=== PATIENT | male | born 1975 | race Caucasian/White ===

== ENCOUNTER 2024-05-25 16:04 | Inpatient (IN) | payer MEDICAID, OTHER, SELFPAY ==
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
[2024-05-25 16:09] VITALS: BP 140/102; PULSE 110; RESP 20; TEMP 37.6; O2SAT 99; BMI 21.7
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
[2024-05-25 16:21] VITALS: BP 140/102; PULSE 110; RESP 20; TEMP 37.6; O2SAT 99
[2024-05-25 16:53] LABS: Appearance Urine Clear; Color Urine Dark Yellow; Glucose Urine UA Negative (Negative); Leukocyte Esterase Urine Negative (Negative); Nitrite Urine Negative (Negative); PH 5.5 (5.0-9.0); Specific Gravity - Urine >= 1.030 (1.005-1.025); UMIC TRIGGER UACC YES; Urine Blood Negative (Negative); Urine Ketones 15 mg/dL (Negative); Urine Protein 100 (2+) mg/dL (Neg-Trace)
[2024-05-25 17:04] LABS: MANUAL DIFF FLAG NO
[2024-05-25 17:06] LABS: Amphetamine Screen Urine Not Detected (Not Detect); Barbiturates, Urine Not Detected (Not Detect); Benzodiazepines Screen Urine Not Detected (Not Detect); Buprenorphine Scr Not Detected (Not Detect); Cannabinoid Screen Urine Not Detected (Not Detect); Cocaine Screen Urine Not Detected (Not Detect); Fentanyl, urine POSITIVE (Not Detect); Methadone Screen, Urine Not Detected (Not Detect); Opiate Screen Urine POSITIVE (Not Detect); Oxycodone Screen Urine Not Detected (Not Detect); Phencyclidine Screen Urine Not Detected (Not Detect)
[2024-05-25 17:12] LABS: Basophils Percent Auto 0.1 % (0-2); Eosinophils Percent Auto 0.1 % (0-4); Hematocrit 46.5 % (42.0-52.0); Hemoglobin 16.5 g/dl (14.0-18.0); Imm Gran Abs Auto 0.07 X10*3/uL (0.00-0.03); Imm Gran Pct Auto 0.5 % (0.0-0.4); Lymphocytes Absolute Auto 1.2 X10*3/uL (1.2-4.9); Lymphocytes Percent Auto 9.2 % (20-40); Mean Corpuscular HGB Conc 35.5 g/dl (31.0-36.0); Mean Corpuscular Hemoglobin 31.9 pg (27.0-33.0); Mean Corpuscular Volume 89.8 fL (80.0-98.0); Mean Platelet Volume 10.7 fL (9.4-12.4); Monocytes Absolute Auto 0.9 X10*3/uL (0.1-1.2); Monocytes Percent Auto 6.3 % (2-11); Neutrophils Absolute Auto 11.3 x10*3/uL (2.0-8.3); Neutrophils Percent Auto 83.8 % (45-73); Platelet Count 141 X10*3/uL (160-400); Red Blood Count 5.18 X10*6/uL (4.60-5.80); White Blood Count 13.5 X10*3/uL (4.8-10.8)
[2024-05-25 17:13] LABS: Bacteria Urine None Seen (None Seen); RBC Urine 0-2 /HPF (0-2); Squamous Epithelial Cell Urine 0-2 /HPF (0-2); WBC Urine 0-5 /HPF (0-5)
[2024-05-25] MEDS: Ondansetron ODT 4 MG TAB.RAPDIS TRANSLINGU (17:15)
[2024-05-25] MEDS: LORazepam 1 MG TABLET 2 MG PO ×2 (17:15→22:19)
[2024-05-25 17:24] LABS: Alanine Aminotransferase 134 U/L (0-40); Albumin Level 4.1 g/dL (3.5-5.0); Alkaline Phosphatase 66 U/L (39-117); Anion Gap 16 (12-20); Aspartate Amino Transferase 94 U/L (5-37); Bilirubin Total 0.9 mg/dL (0.0-1.0); Blood Urea Nitrogen 19 mg/dL (9-16); Calcium 10.1 mg/dL (8.4-10.2); Carbon Dioxide 25 mmol/L (22-29); Chloride 105 mmol/L (96-108); Creatinine Clr Calc Pharmacy 93.1; Estimated Glomerular Filt Rate > 60; Ethanol 61 mg/dL; Glucose Random 108 mg/dL (60-115); Potassium 4.4 mmol/L (3.3-5.1); Sodium 142 mmol/L (135-145); Total Protein 8.3 g/dL (6.5-8.0)
[2024-05-25 17:25] LABS: Acetaminophen LAB < 3 mcg/mL (<30); Salicylate < 5.0 mg/dL (15-30)
[2024-05-25] MEDS: Loperamide HCl 2 MG CAPSULE PO (17:25)
--- NOTE | 2024-05-25 19:31 | PC.NURSE ---
patient appears to remain at rest presently respirations are even and unlabored patient appears in no distress.
[2024-05-25 22:11] VITALS: BP 181/97; PULSE 62; RESP 18; TEMP 37.5; O2SAT 97
[2024-05-25 22:19] VITALS: BP 181/97
[2024-05-25] MEDS: cloNIDine HCL 0.1 MG TABLET PO (22:19)
--- NOTE | 2024-05-25 22:22 | PC.NURSE ---
patient had reported to manager technical support of feeling moderate discomfort from opiate wd sx. assessed for cows score 7 just gave clonidine and some ativan, awaiting flexeril to be brought from main ED.
[2024-05-25] MEDS: Cyclobenzaprine HCl 10 MG TABLET PO (22:34)
--- NOTE | 2024-05-26 | ECG_ITS ---
Test Reason : CHECK QT INTERVAL Blood Pressure : / mmHG Vent. Rate : 053 BPM Atrial Rate : 053 BPM P-R Int : 124 ms QRS Dur : 100 ms QT Int : 494 ms P-R-T Axes : 085 075 086 degrees QTc Int : 463 ms Sinus bradycardia with sinus arrhythmia Otherwise normal ECG No previous ECGs available Referred By: Kristi Montalvo Electronically Signed By:VENICE SIMON MD
[2024-05-26 04:27] VITALS: BP 170/105; PULSE 67; RESP 16; TEMP 36.6; O2SAT 97
[2024-05-26 04:33] LABS: Glucose, Whole Blood 105 mg/dL (60-115)
--- NOTE | 2024-05-26 04:48 | PC.NURSE ---
t/w requested provider review patients vs and lab results in regard to new sx of dizziness, no addl medications to be given at this time
--- NOTE | 2024-05-26 08:19 | MHC.RECOVRN ---
Met with pt in [facility] after pt expressed desire to initiate methadone and reporting withdrawal symptoms. Pt laying in bed, awake, alert, engages in conversation. Pt reports he had been using 2 bundles heroin[place]fent[place], [place], prior to going to correction on Tuesday 05/22. Pt reports he was released on 05/24. Pt reports he did not received MOUD while in correction. Pt reports yesterday (05/25) using 1 bag heroin/fentanyl, [place]. Pt then presented to [facility] reporting SI. Pt currently reporting withdrawal symptoms including restlessness, upset stomach/no appetite, inability to sleep. Pt does not appear diaphoretic, no rhinorrhea noted. Pt would like to initiate methadone and continue when back in the community. Pt has not been to an OTP in the past, has taken methadone illicitly. Pt denies other questions or concerns for t/w. Discussed with pts RN and provider. Plan to administer 30 mg methadone.
[2024-05-26] MEDS: methADONE HCl 20 MG/2 ML ORAL.CONC 30 MG PO (08:48)
[2024-05-26 13:23] VITALS: BP 156/99; PULSE 63; RESP 14; TEMP 36.6; O2SAT 99
--- NOTE | 2024-05-26 15:05 | MHC.RECOVRN ---
Met with pt in [facility] to follow up after receiving 30 mg methadone this morning. Pt awake, alert, engages in conversation, sister Zenaida present with pts permission. Pt reports withdrawal symptoms including restlessness, anxiety, and diaphoresis. Pt requesting additional methadone. Discussed with Saloni Casillas APRN.
[2024-05-26 15:07] VITALS: BP 135/94; PULSE 94; RESP 16; TEMP 36.8; O2SAT 99
[2024-05-26 15:17] VITALS: BMI 20.5
--- NOTE | 2024-05-26 16:26 | PM.EVENT ---
Event Note Date of Service: 05/26/24 Event Note: Addiction consult placed for patient admitted to unit Seen earlier in the day X2 by early childhood teacher assistant --substance use history obtained and methadone initiated by ED provider Reassessed by early childhood teacher assistant several hours after methadone 30mg dose administration, and patient reporting ongoing mild withdrawal sx Plan: -methadone 10mg x1 (total of 40mg today) -methadone 45mg in AM ordered -HIV and hepatitis c screening ordered with AM labs -to be seen by provider in AM Time Spent With Patient Time: Total time managing care of this patient today ____ minutes.
[2024-05-26] MEDS: methADONE HCl 20 MG/2 ML ORAL.CONC 10 MG PO (17:06)
[2024-05-26] MEDS: Flu Vacc TS2024-25(6mos up)/PF 0.5 ML SYRINGE IM (17:07)
[2024-05-26 17:13] VITALS: BP 139/101
[2024-05-26] MEDS: hydrOXYzine HCL 25 MG TABLET PO (17:13)
[2024-05-26] MEDS: cloNIDine HCL 0.1 MG TABLET PO (17:13)
[2024-05-26] MEDS: methADONE HCl 20 MG/2 ML ORAL.CONC 5 MG PO (17:18)
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
[2024-05-26] MEDS: Nicotine Polacrilex 2 MG GUM 4 MG BUCCAL (18:51)
[2024-05-26 19:40] VITALS: BP 144/87; PULSE 108; TEMP 36.9; O2SAT 99
[2024-05-26] MEDS: traZODone HCL 50 MG TABLET PO (23:44)
[2024-05-27] MEDS: methADONE HCl 20 MG/2 ML ORAL.CONC 45 MG PO (07:44)
[2024-05-27 08:16] VITALS: BP 126/82; PULSE 95; RESP 16; TEMP 36.3; O2SAT 99
[2024-05-27] MEDS: Multivitamin TABLET 1 TAB PO (08:31)
[2024-05-27] MEDS: Folic Acid 1 MG TABLET PO (08:31)
[2024-05-27] MEDS: Thiamine HCL 100 MG TABLET PO (08:31)
[2024-05-27 08:45] LABS: Estimated Average Glucose 88 mg/dL; Hemoglobin A1C 126.7408 umol/L; Hemoglobin A1c % 4.7 % (<6.0); Total Hemoglobin (HGBA1C) 4466.8257 umol/L
[2024-05-27 09:42] LABS: Cholesterol 180 mg/dL (<200); HDL Cholesterol 38 mg/dL (>40); LDL Cholesterol Calculated 123 mg/dL (<100); Magnesium 2.1 mg/dL (1.6-2.6); Triglycerides 96 mg/dL (<150)
[2024-05-27 09:57] LABS: Free T4 (Free Thyroxine) 0.86 ng/dL (0.71-1.85); Thyroid Stimulating Hormone 1.65 uIU/mL (0.32-4.0)
[2024-05-27 10:11] LABS: Folate 8.9 ng/mL (> or = 4.0); Vitamin B12 515 pg/mL (200-900)
[2024-05-27 10:13] LABS: HIV AB/AG Nonreactive (Nonreactive); HIV Num 1 0.06 S/CO (0.00-0.99)
[2024-05-27 10:17] LABS: ~HepC Num1 16.54 S/CO (0.00-0.79); ~Hepatitis C Antibody Reactive (Nonreactive)
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
--- NOTE | 2024-05-27 13:59 | HO.ADDICT_ITS ---
History of Present Illness Date of Service: 05/27/2024 Chief Complaint: SI; polysubstance use disorder Reason for Consult: OUD-methadone titration Sources of Information: patient interviewed and chart reviewed HPI Narrative: Patient is a 49 year old male with OUD currently admitted to unit with suicidal ideation Substance use history reviewed -2 bundles IN QD--several years -denies history overdose -denies history of treatment (ATS, MOUD) -denies any other substance use -reporting alcohol use several days per week --does not identify this as an issue Reporting chills denies n/v/loose stools occasional constipation methadone 45mg this morning sx much improved since initiation and hoping to continue dose titration Review of Systems Constitutional: Reports as per HPI Diagnostics Vital Signs (24Hr): Vital Signs - 24 hr 05/26/24 15:07 05/26/24 17:13 05/26/24 19:40 Temperature 98.3 F 98.4 F Pulse Rate 94 108 H Respiratory Rate 16 Blood Pressure 135/94 H 139/101 H 144/87 H Pulse Oximetry 99 99 Oxygen Delivery Method Room Air Room Air 05/27/24 08:16 Temperature 97.3 F Pulse Rate 95 Respiratory Rate 16 Blood Pressure 126/82 Pulse Oximetry 99 Oxygen Delivery Method Room Air BMI result Body Mass Index 20.5 Labs 05/25/24 17:00 05/25/24 17:00 Labs: Laboratory Results - last 48 hr 05/25/24 05/25/24 05/26/24 16:45 17:00 04:30 WBC 13.5 H RBC 5.18 Hgb 16.5 Hct 46.5 MCV 89.8 MCH 31.9 MCHC 35.5 RDW 12.0 Plt Count 141 L MPV 10.7 Immature Gran % (Auto) 0.5 H Neut % (Auto) 83.8 H Lymph % (Auto) 9.2 L [place] % (Auto) 6.3 Eos % (Auto) 0.1 Baso % (Auto) 0.1 Lymph # (Auto) 1.2 [place] # (Auto) 0.9 Eos # (Auto) 0.0 Baso # (Auto) 0.0 Abs Immat Gran (auto) 0.07 H Absolute Neuts (auto) 11.3 H Absolute Nucleated RBC 0.000 Nucleated RBC % (auto) 0.0 Sodium 142 Potassium 4.4 Chloride 105 Carbon Dioxide 25 Anion Gap 16 BUN 19 H Creatinine 0.88 Estim Creat Clear Calc 93.1 Estimated GFR > 60 POC Glucose 105 Random Glucose 108 Estimat Average Glucose Hemoglobin A1c % Calcium 10.1 Magnesium Total Bilirubin 0.9 AST 94 H ALT 134 H Alkaline Phosphatase 66 Total Protein 8.3 H Albumin 4.1 Triglycerides Cholesterol LDL Cholesterol, Calc HDL Cholesterol Vitamin B12 Folate TSH Free T4 Urine Color Dark Yellow Urine Appearance Clear Urine pH 5.5 Ur Specific [place] >= 1.030 H Urine Protein 100 (2+) H Urine Glucose (UA) Negative Urine Ketones 15 Urine Blood Negative Urine Nitrite Negative Ur Leukocyte Esterase Negative Urine RBC 0-2 Urine WBC 0-5 Ur Squamous Epith Cells 0-2 Urine Bacteria None Seen Hyaline Casts 3-5 Salicylates < 5.0 L Urine Opiates Screen POSITIVE H Ur Buprenorphine Scrn Not Detected Ur Oxycodone Screen Not Detected Urine Methadone Screen Not Detected Urine Fentanyl Screen POSITIVE H Acetaminophen < 3 Ur Barbiturates Screen Not Detected Ur Phencyclidine Scrn Not Detected Ur Amphetamines Screen Not Detected U Benzodiazepines Scrn Not Detected Urine Cocaine Screen Not Detected U Marijuana (THC) Screen Not Detected Ethyl Alcohol 61 Hepatitis C Ab (EIA) HIV 1&2 Ab/P24 Ag 4thGn 05/27/24 08:10 WBC RBC Hgb Hct MCV MCH MCHC RDW Plt Count MPV Immature Gran % (Auto) Neut % (Auto) Lymph % (Auto) [place] % (Auto) Eos % (Auto) Baso % (Auto) Lymph # (Auto) [place] # (Auto) Eos # (Auto) Baso # (Auto) Abs Immat Gran (auto) Absolute Neuts (auto) Absolute Nucleated RBC Nucleated RBC % (auto) Sodium Potassium Chloride Carbon Dioxide Anion Gap BUN Creatinine Estim Creat Clear Calc Estimated GFR POC Glucose Random Glucose Estimat Average Glucose 88 Hemoglobin A1c % 4.7 Calcium Magnesium 2.1 Total Bilirubin AST ALT Alkaline Phosphatase Total Protein Albumin Triglycerides 96 Cholesterol 180 LDL Cholesterol, Calc 123 H HDL Cholesterol 38 L Vitamin B12 515 Folate 8.9 TSH 1.65 Free T4 0.86 Urine Color Urine Appearance Urine pH Ur Specific [place] Urine Protein Urine Glucose (UA) Urine Ketones Urine Blood Urine Nitrite Ur Leukocyte Esterase Urine RBC Urine WBC Ur Squamous Epith Cells Urine Bacteria Hyaline Casts Salicylates Urine Opiates Screen Ur Buprenorphine Scrn Ur Oxycodone Screen Urine Methadone Screen Urine Fentanyl Screen Acetaminophen Ur Barbiturates Screen Ur Phencyclidine Scrn Ur Amphetamines Screen U Benzodiazepines Scrn Urine Cocaine Screen U Marijuana (THC) Screen Ethyl Alcohol Hepatitis C Ab (EIA) Reactive H HIV 1&2 Ab/P24 Ag 4thGn Nonreactive Mental Status Exam Mental Status Exam Patient Appearance: Appropriate Level of Consciousness: Awake, Appropriate and Alert Patient Behavior: Appropriate and Talkative Mood Description: Calm Affect Description: Calm Speech Pattern: Clear Medications Medications Current Medications Acetaminophen (Acetaminophen 325 Mg Tablet) 650 mg PO Q6H PRN PRN Reason: Headache/Pain Mild Scale (1-3) Al Hydroxide/Mg Hydroxide (Magnesium Hydrox/Alum Hydrox 30 Ml Oral.Susp) 30 ml PO Q6H PRN PRN Reason: Heartburn/Nausea Clonidine HCl (Clonidine Hcl 0.1 Mg Tablet) 0.1 mg PO Q4H PRN; Protocol PRN Reason: withdrawal sx Folic Acid (Folic Acid 1 Mg Tablet) 1 mg PO DAILY [facility] Last Admin: 05/27/24 08:31 Dose: 1 mg Hydroxyzine HCl (Hydroxyzine Hcl 25 Mg Tablet) 25 mg PO Q6H PRN PRN Reason: Anxiety Last Admin: 05/26/24 17:13 Dose: 25 mg Magnesium Hydroxide (Milk Of Magnesia 30 Ml Oral.Susp) 30 ml PO DAILY PRN PRN Reason: Constipation Methadone HCl (Methadone Hcl 20 Mg/2 Ml Oral.Conc) 45 mg PO DAILY@0800 [facility] Last Admin: 05/27/24 07:44 Dose: 45 mg Multivitamins/Vitamin C (Multivitamin Tablet) 1 tab PO DAILY [facility] Last Admin: 05/27/24 08:31 Dose: 1 tab Nicotine (Nicotine 21 Mg Patch.Td24) 21 mg TRANSDERMA DAILY PRN PRN Reason: nicotine cravings Nicotine Polacrilex (Nicotine Polacrilex 2 Mg Gum) 4 mg BUCCAL Q2H PRN PRN Reason: Nicotine Cravings Last Admin: 05/26/24 18:51 Dose: 4 mg Olanzapine (Olanzapine 5 Mg Tablet) 5 mg PO Q4H PRN PRN Reason: agitation Thiamine HCl (Thiamine Hcl 100 Mg Tablet) 100 mg PO DAILY [facility] Last Admin: 05/27/24 08:31 Dose: 100 mg Trazodone HCl (Trazodone Hcl 50 Mg Tablet) 50 mg PO BEDTIME MRX1 PRN PRN Reason: Insomnia Last Admin: 05/26/24 23:44 Dose: 50 mg Allergies Allergies Allergy/AdvReac Type Severity Reaction Status Date / Time No Known Allergies Allergy Verified 05/25/24 16:12 Assessment & Plan Assessment & Plan (1) Opioid use disorder, severe, dependence: Status: Acute Code(s): F11.20 - Opioid dependence, uncomplicated Assessment and Plan: * methadone dose increase to 55mg in AM * HIV and Hepatitis screens ordered earlier this morning * mill work to check in Total time managing care of this patient today __30__ minutes. PMFSH Social History Social History Household Members: Other Household Members Other:: roommate Housing: House Do you presently have visiting nurse or other home services: No Patient Tobacco Use Status: Current everyday Tobacco user Tobacco use type: Cigarette Cigarette Packs Per Day: 0.5 Cigarettes Per Day: 10.0 Smoked in Last 30 Days: Yes e-Cigarette/Vaping Use: Never Used Patient Interested in Nicotine Replacement: Yes Patient Given Instructions on How to Stop Smoking: No Second Hand Smoke Exposure: No Use of substances other than those prescribed or required for medical reasons: Yes Substance Use Type: Opiates Substance Use Type Other:: Fentanyl Substance Use Frequency: Daily Last Used Substance: Just Prior to Admission Last Used Substance Other:: Uses Fentanyl 1 bundle per daily- sniffs Currently Displaying Signs/Symptoms of Drug Intoxication Withdrawal: No Any prior treatment program specific to substance use: No (Previously taking Suboxone sold on the streets) Have you been hit, kicked, punched, or otherwise hurt by someone within the past year? If so, by whom?: No Do you feel safe in your current relationship?: No Is there a partner from a previous relationship who is making you feel unsafe now?: No Are you made to feel afraid or neglected: No Spiritual Healthcare Practices: None Latter-Day Healthcare Practices: None Cultural Healthcare Practices: None Advance Directives: No Advance Directives Information Provided: No Do you have thoughts of harming others: None Do you have a plan to hurt others: No Plan Recently lost weight without trying: No How much weight loss: Unsure Eating poorly because of decreased appetite: No Nutrition screen score: 2 Nutrition Risks: No Nutritional Risk Poor oral hygiene: No service: No Sexual orientation: Straight/Heterosexual
[2024-05-27] MEDS: hydrOXYzine HCL 25 MG TABLET PO ×2 (15:39→21:43)
[2024-05-27 19:42] VITALS: BP 130/83; PULSE 91; RESP 14; TEMP 36.6; O2SAT 100
[2024-05-27] MEDS: methADONE HCl 20 MG/2 ML ORAL.CONC 5 MG PO (20:09)
[2024-05-27] MEDS: traZODone HCL 50 MG TABLET PO ×2 (20:09→21:43)
[2024-05-27] MEDS: OLANZapine 5 MG TABLET PO (21:45)
[2024-05-28] MEDS: methADONE HCl 20 MG/2 ML ORAL.CONC 55 MG PO (07:58)
[2024-05-28 09:14] VITALS: BP 104/69; PULSE 91; RESP 16; TEMP 36.4; O2SAT 99
[2024-05-28] MEDS: Multivitamin TABLET 1 TAB PO (09:22)
[2024-05-28] MEDS: Thiamine HCL 100 MG TABLET PO (09:22)
[2024-05-28] MEDS: Folic Acid 1 MG TABLET PO (09:22)
[2024-05-28] MEDS: Magnesium Hydrox/Alum Hydrox 30 ML ORAL.SUSP PO (10:18)
[2024-05-28] MEDS: Nicotine 21 MG PATCH.TD24 TRANSDERMA (13:44)
--- NOTE | 2024-05-28 14:37 | MHC.RECOVRN ---
Attempted to meet with pt to follow up regarding methadone. Pt off unit for xray.
--- NOTE | 2024-05-28 15:39 | MHC.RECOVRN ---
Met with pt to follow up and provide support. Pt in visit with his sister, however, reports inability to sleep and creepy crawlies under my skin. Denies other withdrawal symptoms. Denies other questions or concerns for t/w. Saloni Casillas APRN, aware.
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
[2024-05-28 17:00] VITALS: BP 110/77
[2024-05-28] MEDS: cloNIDine HCL 0.1 MG TABLET PO (17:00)
[2024-05-28 17:23] LABS: HCV Log PCR 5.91 Log IU/mL (NOT DETECTED); HepC Viral Load 808000 IU/mL (NOT DETECTED)
[2024-05-28 19:15] VITALS: BMI 21.7
[2024-05-28 20:00] VITALS: BP 106/55; PULSE 86; TEMP 36.6; O2SAT 99
[2024-05-28] MEDS: Mirtazapine 15 MG TABLET PO (20:54)
[2024-05-28] MEDS: Docusate Sodium 100 MG CAPSULE PO (20:54)
[2024-05-28] MEDS: traZODone HCL 50 MG TABLET PO (22:09)
[2024-05-29] MEDS: traZODone HCL 50 MG TABLET PO ×2 (00:22→22:55)
[2024-05-29] MEDS: methADONE HCl 20 MG/2 ML ORAL.CONC 55 MG PO (07:54)
[2024-05-29 08:00] VITALS: BP 143/87; PULSE 77; TEMP 36.9; O2SAT 99
[2024-05-29] MEDS: Docusate Sodium 100 MG CAPSULE PO ×2 (08:39→20:24)
[2024-05-29] MEDS: Folic Acid 1 MG TABLET PO (08:40)
[2024-05-29] MEDS: Thiamine HCL 100 MG TABLET PO (08:40)
[2024-05-29] MEDS: Multivitamin TABLET 1 TAB PO (08:40)
[2024-05-29] MEDS: Milk of Magnesia 30 ML ORAL.SUSP PO (08:52)
[2024-05-29] MEDS: Nicotine 21 MG PATCH.TD24 TRANSDERMA (08:52)
[2024-05-29] MEDS: Magnesium Hydrox/Alum Hydrox 30 ML ORAL.SUSP PO (08:58)
[2024-05-29] MEDS: Ibuprofen 800 MG TABLET PO ×2 (14:22→22:54)
[2024-05-29] MEDS: Lidocaine 4 % Patch ADH..PATCH 1 PATCH TRANSDERMA (14:23)
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
[2024-05-29 20:00] VITALS: BP 112/63; PULSE 80; TEMP 36.4; O2SAT 98
[2024-05-29] MEDS: QUEtiapine Fumarate 25 MG TABLET 75 MG PO (20:24)
[2024-05-30] MEDS: methADONE HCl 20 MG/2 ML ORAL.CONC 55 MG PO (07:46)
[2024-05-30 08:33] VITALS: BP 136/72; PULSE 52; RESP 16; TEMP 36.4; O2SAT 96
[2024-05-30] MEDS: Thiamine HCL 100 MG TABLET PO (09:08)
[2024-05-30] MEDS: Folic Acid 1 MG TABLET PO (09:08)
[2024-05-30] MEDS: Multivitamin TABLET 1 TAB PO (09:08)
[2024-05-30] MEDS: Escitalopram Oxalate 5 MG TABLET PO (09:08)
[2024-05-30] MEDS: Docusate Sodium 100 MG CAPSULE PO ×2 (09:08→20:55)
[2024-05-30] MEDS: Nicotine 21 MG PATCH.TD24 TRANSDERMA (09:36)
[2024-05-30] MEDS: Ibuprofen 800 MG TABLET PO ×2 (09:37→19:16)
[2024-05-30] MEDS: Milk of Magnesia 30 ML ORAL.SUSP PO (09:37)
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
[2024-05-30] MEDS: Lidocaine 4 % Patch ADH..PATCH 1 PATCH TRANSDERMA (11:33)
[2024-05-30] MEDS: Omeprazole 20 MG CAPSULE.DR PO (11:33)
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
[2024-05-30 20:00] VITALS: BP 135/85; PULSE 80; RESP 16; TEMP 36.4; O2SAT 97
[2024-05-30] MEDS: Magnesium Hydrox/Alum Hydrox 30 ML ORAL.SUSP PO (20:55)
[2024-05-30] MEDS: traZODone HCL 50 MG TABLET PO (20:55)
[2024-05-30] MEDS: QUEtiapine Fumarate 25 MG TABLET 75 MG PO (20:55)
[2024-05-31] MEDS: methADONE HCl 20 MG/2 ML ORAL.CONC 55 MG PO (07:37)
[2024-05-31 08:32] VITALS: BP 129/85; PULSE 87; RESP 16; TEMP 36.4; O2SAT 100
[2024-05-31] MEDS: Multivitamin TABLET 1 TAB PO (08:37)
[2024-05-31] MEDS: Docusate Sodium 100 MG CAPSULE PO ×2 (08:37→21:34)
[2024-05-31] MEDS: Lidocaine 4 % Patch ADH..PATCH 1 PATCH TRANSDERMA (08:37)
[2024-05-31] MEDS: Folic Acid 1 MG TABLET PO (08:37)
[2024-05-31] MEDS: Nicotine 21 MG PATCH.TD24 TRANSDERMA (08:37)
[2024-05-31] MEDS: Omeprazole 20 MG CAPSULE.DR PO (08:37)
[2024-05-31] MEDS: Escitalopram Oxalate 5 MG TABLET PO (08:37)
[2024-05-31] MEDS: Ibuprofen 800 MG TABLET PO ×2 (09:38→22:31)
[2024-05-31] MEDS: Thiamine HCL 100 MG TABLET PO (09:38)
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
[2024-05-31] MEDS: Milk of Magnesia 30 ML ORAL.SUSP PO (12:46)
[2024-05-31 20:00] VITALS: BP 124/88; PULSE 66; RESP 16; TEMP 36.4; O2SAT 99
[2024-05-31] MEDS: QUEtiapine Fumarate 25 MG TABLET 75 MG PO (21:34)
[2024-05-31] MEDS: traZODone HCL 50 MG TABLET PO ×2 (21:34→22:31)
[2024-05-31] MEDS: hydrOXYzine HCL 25 MG TABLET PO (22:32)
[2024-06-01] MEDS: methADONE HCl 20 MG/2 ML ORAL.CONC 55 MG PO (07:45)
[2024-06-01 08:00] VITALS: BP 128/82; PULSE 76; RESP 16; TEMP 36.6; O2SAT 99
[2024-06-01] MEDS: Multivitamin TABLET 1 TAB PO (09:08)
[2024-06-01] MEDS: Nicotine 21 MG PATCH.TD24 TRANSDERMA (09:08)
[2024-06-01] MEDS: Omeprazole 20 MG CAPSULE.DR PO (09:08)
[2024-06-01] MEDS: Docusate Sodium 100 MG CAPSULE PO ×2 (09:08→21:13)
[2024-06-01] MEDS: Thiamine HCL 100 MG TABLET PO (09:08)
[2024-06-01] MEDS: Folic Acid 1 MG TABLET PO (09:08)
[2024-06-01] MEDS: Escitalopram Oxalate 5 MG TABLET PO (09:08)
[2024-06-01] MEDS: Lidocaine 4 % Patch ADH..PATCH 1 PATCH TRANSDERMA (09:09)
[2024-06-01] MEDS: Ibuprofen 800 MG TABLET PO ×2 (09:31→21:13)
--- NOTE | 2024-06-01 10:19 | MHC.RECOVRN ---
Met with pt on [facility] to follow up and provide support. Pt awake, alert, easily engages in conversation. Pt reports difficulty sleeping and is requesting an increase in methadone. Pt attributes inability to sleep to continued withdrawal symptoms, states I know I'm not 100% yet. Pt reports feeling less creepy crawlies than last week, encouraged to continue utilizing clonidine. Pt reports constipation and requesting medication in addition to Colace. After looking at chart, pt has also been receiving MOM. Informed pts RN regarding pts concern. Pt denies other questions or concerns for t/w. Discussed with Saloni Casillas APRN.
--- NOTE | 2024-06-01 14:09 | PM.EVENT ---
Event Note Date of Service: 06/01/24 Event Note: Addiction note patient seen by social security assessor reporting some difficutly sleeping requesting methadone dose increase overall withdrawal sx have subsided Plan: methadone dose increase 5mg from 55mg QD to 60mg QD Time Spent With Patient Time: Total time managing care of this patient today ____ minutes.
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
[2024-06-01] MEDS: Milk of Magnesia 30 ML ORAL.SUSP PO (18:12)
[2024-06-01] MEDS: polyethylene glycoL 3350 17 GM POWD.PACK PO (19:59)
[2024-06-01 20:00] VITALS: BP 129/76; PULSE 76; RESP 16; TEMP 36.3; O2SAT 100
[2024-06-01] MEDS: Divalproex Sodium ER 500 MG TAB.ER.24H PO (21:13)
[2024-06-01] MEDS: QUEtiapine Fumarate 25 MG TABLET 75 MG PO (21:13)
[2024-06-01] MEDS: traZODone HCL 50 MG TABLET PO ×2 (21:15→22:29)
[2024-06-01] MEDS: hydrOXYzine HCL 25 MG TABLET PO (22:29)
[2024-06-02] MEDS: methADONE HCl 20 MG/2 ML ORAL.CONC 60 MG PO (07:54)
[2024-06-02 08:00] VITALS: BP 129/68; PULSE 70; RESP 20; TEMP 36.9; O2SAT 98
[2024-06-02] MEDS: Folic Acid 1 MG TABLET PO (08:37)
[2024-06-02] MEDS: Milk of Magnesia 30 ML ORAL.SUSP PO (08:37)
[2024-06-02] MEDS: Escitalopram Oxalate 5 MG TABLET PO (08:37)
[2024-06-02] MEDS: Multivitamin TABLET 1 TAB PO (08:37)
[2024-06-02] MEDS: polyethylene glycoL 3350 17 GM POWD.PACK PO (08:37)
[2024-06-02] MEDS: Docusate Sodium 100 MG CAPSULE PO ×2 (08:37→21:18)
[2024-06-02] MEDS: Omeprazole 20 MG CAPSULE.DR PO (08:37)
[2024-06-02] MEDS: Lidocaine 4 % Patch ADH..PATCH 1 PATCH TRANSDERMA (08:41)
[2024-06-02] MEDS: Nicotine 21 MG PATCH.TD24 TRANSDERMA (08:57)
[2024-06-02] MEDS: Ibuprofen 800 MG TABLET PO ×2 (08:57→21:25)
[2024-06-02] MEDS: Thiamine HCL 100 MG TABLET PO (08:57)
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
[2024-06-02] MEDS: Lactulose 20 GM/30 ML SOLUTION PO (16:24)
[2024-06-02] MEDS: Divalproex Sodium ER 500 MG TAB.ER.24H PO (21:18)
[2024-06-02] MEDS: hydrOXYzine HCL 25 MG TABLET PO (21:18)
[2024-06-02] MEDS: QUEtiapine Fumarate 25 MG TABLET 75 MG PO (21:18)
[2024-06-02] MEDS: traZODone HCL 50 MG TABLET PO ×2 (21:18→22:39)
[2024-06-02] MEDS: OLANZapine 5 MG TABLET PO (22:39)
[2024-06-03] MEDS: methADONE HCl 20 MG/2 ML ORAL.CONC 60 MG PO (07:44)
[2024-06-03 08:25] VITALS: BP 135/77; PULSE 77; RESP 16; TEMP 36.6; O2SAT 98
[2024-06-03] MEDS: Omeprazole 20 MG CAPSULE.DR PO (08:34)
[2024-06-03] MEDS: Docusate Sodium 100 MG CAPSULE PO ×2 (08:34→21:39)
[2024-06-03] MEDS: Multivitamin TABLET 1 TAB PO (08:34)
[2024-06-03] MEDS: Escitalopram Oxalate 5 MG TABLET PO (08:34)
[2024-06-03] MEDS: Thiamine HCL 100 MG TABLET PO (08:34)
[2024-06-03] MEDS: Folic Acid 1 MG TABLET PO (08:34)
[2024-06-03] MEDS: Ibuprofen 800 MG TABLET PO ×2 (11:08→21:38)
[2024-06-03] MEDS: Lidocaine 4 % Patch ADH..PATCH 1 PATCH TRANSDERMA (11:13)
[2024-06-03] MEDS: polyethylene glycoL 3350 17 GM POWD.PACK PO (16:42)
[2024-06-03] MEDS: Milk of Magnesia 30 ML ORAL.SUSP PO (16:43)
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
[2024-06-03 20:00] VITALS: BP 122/68; PULSE 64; TEMP 36.8; O2SAT 97
[2024-06-03] MEDS: traZODone HCL 50 MG TABLET PO (21:39)
[2024-06-03] MEDS: Divalproex Sodium ER 500 MG TAB.ER.24H PO (21:39)
[2024-06-03] MEDS: QUEtiapine Fumarate 100 MG TABLET PO (21:40)
[2024-06-04] MEDS: Omeprazole 20 MG CAPSULE.DR PO (07:42)
[2024-06-04] MEDS: methADONE HCl 20 MG/2 ML ORAL.CONC 60 MG PO (07:52)
[2024-06-04] MEDS: Thiamine HCL 100 MG TABLET PO (09:29)
[2024-06-04] MEDS: Multivitamin TABLET 1 TAB PO (09:30)
[2024-06-04] MEDS: Escitalopram Oxalate 5 MG TABLET PO (09:30)
[2024-06-04] MEDS: Folic Acid 1 MG TABLET PO (09:30)
[2024-06-04] MEDS: Docusate Sodium 100 MG CAPSULE PO (09:30)
[2024-06-04] MEDS: Lidocaine 4 % Patch ADH..PATCH 1 PATCH TRANSDERMA (09:30)
[2024-06-04] MEDS: Ibuprofen 800 MG TABLET PO (09:34)
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
== END 2024-06-04 11:30 | disposition home or self-care (01) | DRG 756 ==
LOC: HO.ED 05-26 07:38 → HO.PM5 05-26 14:08
PROVIDERS: Nurse Practitioner Psychiatric/Mental Health; Physician Assistant; Admitting Provider Clinical Nurse Specialist Psychiatric/Mental Health, Adult; Emergency Provider Emergency Medicine; Visit Provider Clinical Nurse Specialist Psychiatric/Mental Health, Adult
DX: F43.10 Post-traumatic stress disorder, unspecified (principal); R45.851 Suicidal ideations; F39 Unspecified mood [affective] disorder; F19.90 Other psychoactive substance use, unspecified, uncomplicated; F11.20 Opioid dependence, uncomplicated; F17.210 Nicotine dependence, cigarettes, uncomplicated; Z71.6 Tobacco abuse counseling; Z23 Encounter for immunization; Y90.3 Blood alcohol level of 60-79 mg/100 ml; Z79.899 Other long term (current) drug therapy
CPT/HCPCS: 36415; 70200; 70450; 71101; 80053; 80061; 80143; 80179; 80307; 81001; 82607; 82746; 82947; 83036; 83735; 84439; 84443; 85025; 86803; 87389; 87522; 90656; 93005; 99285; S9485

== ENCOUNTER 2024-05-26 14:04 | Outpatient (BNV) | payer OTHER, SELFPAY | END 2024-05-28 13:15 | PROVIDERS: Admitting Provider Clinical Nurse Specialist Psychiatric/Mental Health, Adult; Emergency Provider Emergency Medicine; Visit Provider Radiology Diagnostic Radiology | DX: T14.90XA Injury, unspecified, initial encounter (principal) | CPT/HCPCS: 70200; 70450; 71101 ==

== ENCOUNTER 2024-05-26 14:04 | Outpatient (BNV) | payer OTHER, SELFPAY | END 2024-05-26 14:16 | PROVIDERS: Admitting Provider Clinical Nurse Specialist Psychiatric/Mental Health, Adult; Emergency Provider Emergency Medicine; Visit Provider Internal Medicine Cardiovascular Disease | DX: I49.9 Cardiac arrhythmia, unspecified (principal) | CPT/HCPCS: 93010 ==

== ENCOUNTER → 2024-05-26 14:04 | Outpatient (BNV) | payer OTHER, MEDICAID, SELFPAY | PROVIDERS: Admitting Provider Clinical Nurse Specialist Psychiatric/Mental Health, Adult; Emergency Provider Emergency Medicine; Visit Provider Psychiatry & Neurology Psychiatry | DX: F11.20 Opioid dependence, uncomplicated (principal); R45.851 Suicidal ideations; F43.10 Post-traumatic stress disorder, unspecified | CPT/HCPCS: 99231 ==

== ENCOUNTER → 2024-05-26 14:04 | Outpatient (BNV) | payer OTHER, SELFPAY | PROVIDERS: Admitting Provider Clinical Nurse Specialist Psychiatric/Mental Health, Adult; Emergency Provider Emergency Medicine; Visit Provider Nurse Practitioner Psychiatric/Mental Health | DX: F11.20 Opioid dependence, uncomplicated (principal) | CPT/HCPCS: 99499 ==

== ENCOUNTER → 2024-05-26 14:04 | Outpatient (BNV) | payer OTHER, SELFPAY | PROVIDERS: Admitting Provider Clinical Nurse Specialist Psychiatric/Mental Health, Adult; Emergency Provider Emergency Medicine; Visit Provider Clinical Nurse Specialist Psychiatric/Mental Health, Adult | DX: F11.20 Opioid dependence, uncomplicated (principal); R45.851 Suicidal ideations; F43.11 Post-traumatic stress disorder, acute | CPT/HCPCS: 99231; 99232 ==